=== PATIENT | male | born 1975 | race Native Hawaiian/Other Pacific Islander ===

== ENCOUNTER 2017-07-22 10:21 | Emergency (ER) | payer OTHER ==
[~2017-07-22] VITALS: Ht 177.8 cm; Wt 86.2 kg
[2017-07-22 11:43] LABS: PLATELET COUNT 225 K/uL (142-355)
[2017-07-22 11:53] LABS: POTASSIUM 4.3 mmol/L (3.6-5.2); SODIUM 139 mmol/L (136-145)
[2017-07-22 15:18] VITALS: BP 135/74; TEMP 98
== END 2017-07-22 15:18 | disposition home or self-care (01) ==
LOC: ED 10:21
DX: R10.9 Unspecified abdominal pain (principal)
CPT/HCPCS: 80053; 82150; 83690; 85027; 96360; 96361; 96375; 99284; J1170; J2550

== ENCOUNTER 2019-01-26 06:54 | Emergency (ER) | payer OTHER ==
[~2019-01-26] VITALS: Ht 177.8 cm; Wt 81.6 kg
[2019-01-26 07:00] VITALS: TEMP 97.5
[2019-01-26 07:44] LABS: PLATELET COUNT 219 K/uL (142-355)
[2019-01-26 07:50] LABS: POTASSIUM 3.8 mmol/L (3.6-5.2); SODIUM 139 mmol/L (136-145)
[2019-01-26 08:55] VITALS: BP 118/65
== END 2019-01-26 09:00 | disposition home or self-care (01) ==
LOC: ED 06:54
PROVIDERS: Family Medicine
DX: R07.89 Other chest pain (principal)
CPT/HCPCS: 80053; 81000; 82550; 84484; 85027; 93005; 99284

== ENCOUNTER 2019-10-26 06:51 | Emergency (ER) | payer OTHER ==
[~2019-10-26] VITALS: Ht 177.8 cm; Wt 83.9 kg
[2019-10-26 06:59] VITALS: TEMP 98.1
[2019-10-26 07:50] VITALS: BP 123/80
== END 2019-10-26 07:50 | disposition home or self-care (01) ==
LOC: ED 06:51
DX: M54.89 Other dorsalgia (principal); G89.29 Other chronic pain; M54.10 Radiculopathy, site unspecified
CPT/HCPCS: 93005; 96372; 99283; J1885; J2930

== ENCOUNTER 2019-10-27 08:46 | Outpatient (CLI) | payer OTHER | END 2019-10-27 17:00 | disposition home or self-care (01) | LOC: RAD 08:46 | DX: M54.16 Radiculopathy, lumbar region (principal) ==

== ENCOUNTER 2020-07-03 13:50 | Emergency (ER) | payer OTHER ==
[~2020-07-03] VITALS: Ht 177.8 cm; Wt 86.2 kg
[2020-07-03 14:03] VITALS: TEMP 98.9
[2020-07-03 15:16] VITALS: BP 143/74
== END 2020-07-03 15:16 | disposition home or self-care (01) ==
LOC: ED 13:50
PROC: 2W3QX1Z Immobilization of Right Lower Leg using Splint (ICD-10-PCS; principal; 2020-07-03)
DX: S93.491A Sprain of other ligament of right ankle, initial encounter (principal); S93.691A Other sprain of right foot, initial encounter; M13.871 Other specified arthritis, right ankle and foot; W10.8XXA Fall (on) (from) other stairs and steps, initial encounter; Y92.89 Other specified places as the place of occurrence of the external cause
CPT/HCPCS: 96372; 99283; J1885

== ENCOUNTER 2021-11-15 05:27 | Emergency (ER) | payer BC ==
[~2021-11-15] VITALS: Ht 177.8 cm; Wt 86.6 kg
[2021-11-15 05:38] VITALS: TEMP 98.2
[2021-11-15 06:21] LABS: PLATELET COUNT 212 K/uL (142-355)
[2021-11-15 06:24] LABS: POTASSIUM 3.7 mmol/L (3.6-5.2)
[2021-11-15 10:05] VITALS: BP 134/90
== END 2021-11-15 10:05 | disposition home or self-care (01) ==
LOC: ED 05:27
PROVIDERS: Emergency Medicine
DX: J18.9 Pneumonia, unspecified organism (principal); K52.89 Other specified noninfective gastroenteritis and colitis; Z20.822 Contact with and (suspected) exposure to COVID-19
CPT/HCPCS: 36415; 80053; 81000; 85027; 87040; 87635; 96360; 96365; 96366; 96375; 96376; 99284; J1956; J2270; J2405; U0003

== ENCOUNTER 2022-02-25 15:52 | Emergency (ER) | payer BC ==
[~2022-02-25] VITALS: Ht 177.8 cm; Wt 90.7 kg
[2022-02-25 16:42] LABS: PLATELET COUNT 309 K/uL (142-355)
[2022-02-25 16:56] LABS: PARTIAL THROMBOPLASTIN TIME 20.9 SECONDS (24.5-33.6)
[2022-02-25 17:18] LABS: POTASSIUM 4.5 mmol/L (3.6-5.2)
[2022-02-25 19:10] VITALS: BP 148/87; TEMP 97.5
== END 2022-02-25 19:15 | disposition home or self-care (01) ==
LOC: ED 15:52
PROVIDERS: Hospitalist
DX: T39.391A Poisoning by other nonsteroidal anti-inflammatory drugs [NSAID], accidental (unintentional), initial encounter (principal); T42.8X1A Poisoning by antiparkinsonism drugs and other central muscle-tone depressants, accidental (unintentional), initial encounter; X58.XXXA Exposure to other specified factors, initial encounter; Y92.89 Other specified places as the place of occurrence of the external cause
CPT/HCPCS: 36415; 80053; 80143; 80179; 80307; 80320; 81000; 82550; 83880; 84484; 85027; 85610; 85730; 96360; 99285

== ENCOUNTER 2022-03-06 14:19 | Emergency (ER) | payer BC ==
[~2022-03-06] VITALS: Ht 177.8 cm; Wt 90.7 kg
[2022-03-06 14:26] VITALS: TEMP 98.6
[2022-03-06 15:30] VITALS: BP 157/96
== END 2022-03-06 15:30 | disposition home or self-care (01) ==
LOC: ED 14:19
DX: S63.8X2A Sprain of other part of left wrist and hand, initial encounter (principal); S63.8X1A Sprain of other part of right wrist and hand, initial encounter; S20.319A Abrasion of unspecified front wall of thorax, initial encounter; S60.812A Abrasion of left wrist, initial encounter; S60.811A Abrasion of right wrist, initial encounter; W11.XXXA Fall on and from ladder, initial encounter; Y92.89 Other specified places as the place of occurrence of the external cause
CPT/HCPCS: 99283

== ENCOUNTER 2022-03-13 14:57 | Emergency (ER) | payer BC ==
[~2022-03-13] VITALS: Ht 177.8 cm; Wt 90.7 kg
[2022-03-13 15:07] VITALS: TEMP 98.9
[2022-03-13 17:25] VITALS: BP 150/90
== END 2022-03-13 17:25 | disposition home or self-care (01) ==
LOC: ED 14:57
DX: S39.012A Strain of muscle, fascia and tendon of lower back, initial encounter (principal); M47.896 Other spondylosis, lumbar region; W11.XXXA Fall on and from ladder, initial encounter; Y92.89 Other specified places as the place of occurrence of the external cause
CPT/HCPCS: 96372; 99283; J1885

== ENCOUNTER 2022-05-21 07:47 | Emergency (ER) | payer BC ==
[~2022-05-21] VITALS: Ht 177.8 cm; Wt 90.7 kg
[2022-05-21 07:50] VITALS: BP 161/91; TEMP 98.6
== END 2022-05-21 08:53 | disposition home or self-care (01) ==
LOC: ED 07:47
DX: L72.3 Sebaceous cyst (principal)
CPT/HCPCS: 99282

== ENCOUNTER 2023-04-28 08:25 | Emergency (ER) | payer OTHER ==
[~2023-04-28] VITALS: Ht 177.8 cm; Wt 90.7 kg
[2023-04-28 08:28] VITALS: BP 132/96; TEMP 98
== END 2023-04-28 10:15 | disposition home or self-care (01) ==
LOC: ED 08:25
DX: S62.306A Unspecified fracture of fifth metacarpal bone, right hand, initial encounter for closed fracture (principal); X58.XXXA Exposure to other specified factors, initial encounter
CPT/HCPCS: 99282